=== PATIENT | female | born 1965 | race Caucasian/White ===

== ENCOUNTER 2017-10-17 20:59 | Emergency (ER) | payer BC ==
--- NOTE | 2017-10-17 21:23 | EDPHY ---
H & P Time Seen by Provider: 10/17/17 21:18 HPI/ROS: CHIEF COMPLAINT: Left medial ankle pain post mechanical fall HISTORY OF PRESENT ILLNESS: 52-year-old female arrives via ambulance complaining of acute left ankle pain when she misjudged the last step, rolled her foot. She is visiting for wash in [place] returning in 2 days. She has not attempted to bear weight. No paresthesia. No proximal pain or injury. No fall from height. No head injury. PHYSICAL EXAM (Prior to examination, patient consented to physical exam, hands were washed and my usual and customary physical exam procedures followed) 1) GENERAL: Well-developed, well-nourished, alert and oriented. Appears to be in no acute distress. 2) HEAD: Normocephalic 3) HEENT: Pupils equal, round, reactive to light bilaterally. 4) LUNGS: Breathing comfortably. 5) MUSCULOSKELETAL: Tender to palpation medial malleolus. proximal tibia and fibula nontender .5th MT nontender negative Nieto test, compartments soft 6) SKIN: Intact no tenting. No puncture wound 7) VASCULAR: DP,PT pulses and cap refill present and brisk DIFFERENTIAL DIAGNOSIS: in no particular order including but not limited to fracture, sprain, compartment syndrome Procedure: Crutches indications for crutch use discussed with patient. Patient fitted for crutches by ER staff. Observed ambulating with crutches. I think the patient has the capacity to safely use crutches. Usual and customary crutch walking precautions provided Procedure: Splint A madhuri boot splint was applied by ER rail technician. After application of the splint I returned and re-examined the patient. The splint was adequately immobilizing the joint and distal to the splint the patient's circulation and sensation were intact. Patient shows no signs of compartment syndrome. Was given orthopedic precautions. Smoking Status: Never smoked Constitutional: Initial Vital Signs Temperature (C) 36.7 C 10/17/17 21:02 Heart Rate 74 10/17/17 21:02 Respiratory Rate 18 10/17/17 21:02 Blood Pressure 123/91 H 10/17/17 21:02 O2 Sat (%) 98 10/17/17 21:02 O2 Delivery Mode Room Air Allergies/Adverse Reactions: tree nut Allergy (Verified 10/17/17 21:04) Home Medications: Medication Instructions Recorded oxyCODONE/APAP 5/325 [Percocet 1 tab PO Q6 #10 tab 10/17/17 5/325] oxyCODONE/APAP 5/325 [Percocet 1 tab PO Q6 #7 tab 10/17/17 5/325] MDM/Departure - MDM Procedures: Procedure: Dislocation reduction. . The dislocation of the ankle mortise was reduced using traction and counter traction technique without complications. Post reduction the patient's neurovascular exam is normal. Procedure: Splint A 3 way Ortho Glass above the knee splint was applied by ER rail technician. After application of the splint I returned and re-examined the patient. The splint was adequately immobilizing the joint and distal to the splint the patient's circulation and sensation were intact. Patient shows no signs of compartment syndrome. Was given orthopedic precautions. Procedure: Crutches indications for crutch use discussed with patient. Patient fitted for crutches by ER staff. Observed ambulating with crutches. I think the patient has the capacity to safely use crutches. Usual and customary crutch walking precautions provided Medications Given: Discontinued Medications Fentanyl (Sublimaze) 100 mcg IVP EDNOW ONE Stop: 10/17/17 21:51 Last Admin: 10/17/17 22:12 Dose: Not Given Oxycodone/Acetaminophen (Percocet 5/325) 1 tab PO EDNOW ONE Stop: 10/17/17 22:09 Last Admin: 10/17/17 22:11 Dose: 1 tab Oxycodone/Acetaminophen (Percocet 5/325mg Prepack#4) 1 btl TAKEHOME EDNOW ONE Stop: 10/17/17 22:45 Last Admin: 10/17/17 23:08 Dose: 1 btl ED Course/Re-evaluation: Patient re-evaluated with serial exams. Phone consultation with Dr. Andre Moreira on-call orthopedics 11:00 p.m. Who reviewed the patient's images remotely. He agrees with plan of outpatient follow-up when patient returns to [facility] tomorrow. She has been informed that she is at risk as compartment syndrome in the importance of close monitoring has been stressed on numerous instances. At no point has she showing signs or symptoms consistent with compartment syndrome. She will be discharged with analgesia, her images. She feels comfortable being discharged. - Depart Disposition: Home, Routine, Self-Care Clinical Impression: Bimalleolar fracture of left ankle Qualifiers: Encounter type: initial encounter Fracture type: closed Qualified Code(s): S82.842A - Displaced bimalleolar fracture of left lower leg, initial encounter for closed fracture Condition: Good Instructions: Oxycodone/Acetaminophen (By mouth), Ankle Fracture (ED) Additional Instructions: Return to the ER immediately if you experience discoloration, have worsening pain, numbness, tingling, or any other symptoms that concern you. If you received x-rays in the emergency department today, be advised, that ligamentous , tendon, muscular, and other non-bony injury cannot be fully ruled out. Try to keep your affected extremity elevated above the level of your chest, and keep cold packs on the affected area, for the next 48 hours. I recommend that you see a foot and ankle orthopedic surgeon in [facility] in the next 1 week. Call on Friday Prescriptions: oxyCODONE/APAP 5/325 [Percocet 5/325] 1 tab PO Q6 #7 tab oxyCODONE/APAP 5/325 [Percocet 5/325] 1 tab PO Q6 #10 tab Referrals: Andre Moreira MD [Medical Doctor] - 2-3 days, call for appt. (Recommend you follow up with orthopedic surgeon in [facility] area)
[2017-10-17] MEDS ORDERED: fentaNYL 100 MCG/2 ML INJ IVP ONE (21:50)
[2017-10-17] MEDS ORDERED: OXYCODONE/APAP 5/325 TAB PO ONE (22:08)
[2017-10-17] MEDS ORDERED: OXYCODONE/APAP 5/325 TAB ONE (22:09)
[2017-10-17] MEDS ORDERED: OXYCODONE/APAP 5/325MG PREPACK#4 BTL TAKEHOME ONE (22:44)
[2017-10-17 23:14] VITALS: BP 137/79
== END 2017-10-17 23:47 | disposition home or self-care (01) ==
PROC: 0SSGXZZ Reposition Left Ankle Joint, External Approach (ICD-10-PCS; principal; 2017-10-17)
PROC: 2W3RX1Z Immobilization of Left Lower Leg using Splint (ICD-10-PCS; 2017-10-17)
DX: S82.842A Displaced bimalleolar fracture of left lower leg, initial encounter for closed fracture (principal); W19.XXXA Unspecified fall, initial encounter